=== PATIENT | female | born 1985 | race African-American/Black ===

== ENCOUNTER 2019-09-07 12:40 | Emergency (ER) | payer OTHER ==
[~2019-09-07] VITALS: Ht 167.6 cm; Wt 59.0 kg
[2019-09-07] MEDS ORDERED: Acetaminophen 500mg (ES) tab ORAL ONE (13:00)
[2019-09-07] MEDS ORDERED: PRENA1 PEARL S1 EACH PO (13:10)
--- NOTE | 2019-09-07 13:27 | Emergency Room Report ---
History of Present Illness General Chief Complaint: Complications Source: Patient (Ezio Chow) Present Illness HPI 33-year-old female with no symptom past medical history who is G6, with a last ending to being stillbirth at 8 months occurring 9 years ago here complaining of 1 day of vaginal spotting or proceeded with leaking clear fluid and now blood-tinged fluid. Patient is 19 weeks and has not yet had any OB visits or ultrasound done. Patient reports the last week and he drank alcohol due to the loss of a loved one. Denies smoking and drug use. Complains of minimal abdominal pain however denies feeling any contractions, nausea vomiting. Patient complains of chills, and palpitations however denies chest pain, shortness of breath, headache and dizziness. Upon arrival she has a temperature of 102 F and is tachycardic. Otherwise has stable vital signs. Denies urinary frequency and painful urination. Patient speaks in full sentences and is cooperative. Denies vaginal discharge other than the clear fluid that has been flowing since this morning. Patient reports that she has been taking her vitamins. Denies intake of any other medications. (Ezio Chow) Allergies: Coded Allergies: No Known Allergies (Unverified , 09/07/19) Patient History Past Medical History: see triage record Past Surgical History: none Pertinent Family History: unable to obtain Social History: Reports: alcohol use Now: Yes - 19 weeks Immunizations: UTD Reviewed Nursing Documentation: PMH: Agreed; PSxH: Agreed (Ezio Chow) Nursing Documentation-PMH Past Medical History: No Stated History (Ezio Chow) Review of Systems All Other Systems: negative except mentioned in HPI (Ezio Chow) Physical Exam Vital Signs Date Time Temp Pulse Resp B/P (MAP) Pulse Ox O2 Delivery O2 Flow Rate FiO2 09/07/19 13:01 102.4 121 22 110/68 (82) 96 Room Air Sp02 EP Interpretation: reviewed, abnormal - Temperature of 102 F and heart rate 112 General Appearance: no apparent distress, alert, GCS 15, non-toxic Head: normocephalic, atraumatic Eyes: bilateral eye normal inspection, bilateral eye PERRL ENT: hearing grossly normal, normal pharynx, no angioedema, normal voice Neck: full range of motion, supple/symm/no masses Respiratory: chest non-tender, lungs clear, normal breath sounds, no wheezing, speaking full sentences Cardiovascular #1: regular rate, rhythm, no edema, no murmur, normal capillary refill Gastrointestinal: normal bowel sounds, non tender, soft, no mass, no organomegaly, no peritonitis, no bruit, no guarding, no hernia, no rebound Genitourinary: normal inspection, no CVA tenderness Musculoskeletal: normal inspection, back normal, digits/nails normal, gait/ station normal, no calf tenderness Neurologic: alert, oriented x3, responsive, motor strength/tone normal, sensory intact, speech normal Psychiatric: normal inspection, judgement/insight normal, memory normal Skin: no rash Lymphatic: no adenopathy (Ezio Chow) Medical Decision Making PA Attestation All my diagnosis and treatment plans were reviewed ad discussed with my supervising physician Dr. Jeffrey (Ezio Chow) Diagnostic Impression: Primary Impression: Complication of Additional Impression: Endometritis affecting ER Course 33-year-old female with no symptom past medical history who is G6, with a last ending to being stillbirth at 8 months occurring 9 years ago here complaining of 1 day of vaginal spotting or proceeded with leaking clear fluid and now blood-tinged fluid. Patient is 19 weeks and has not yet had any OB visits or ultrasound done. Patient reports the last week and he drank alcohol due to the loss of a loved one. Denies smoking and drug use. Complains of minimal abdominal pain however denies feeling any contractions, nausea vomiting. Patient complains of chills, and palpitations however denies chest pain, shortness of breath, headache and dizziness. Upon arrival she has a temperature of 102 F and is tachycardic. Otherwise has stable vital signs. Denies urinary frequency and painful urination. Patient speaks in full sentences and is cooperative. Denies vaginal discharge other than the clear fluid that has been flowing since this morning. Patient reports that she has been taking her vitamins. Denies intake of any other medications. Ddx considered but are not limited to: Ectopic , threatened , complete , PID Vital signs: are WNL, pt. is afebrile H&PE are most consistent with: High risk complication of with fever, endometritis affecting ORDERS: OB ultrasound, beta hcg, UA, cbc, cmp, type and screen, sepsis order ED INTERVENTIONS: NS bolus, tylenol, zosyn, clindamycin Patient was Transferred with diagnosis of endometritis affecting to Dr. Barrientos, at [facility], under supervision of : Wojciech pt stable at time of Transfer (Ezio Chow) ER Course Patient is a 33-year-old female who presented after increased leakage of fluid for 1 day as well as increased fever. Patient reports having some suprapubic pain. Patient was primarily seen by physician funeral assistant. She was noted to have symptoms concerning for oligohydramnios as well as possible sepsis from endometrial infection. Patient was started on IV antibiotics as well as IV fluids. Patient will likely be transferred for higher level care due to lack of OB coverage at this facility. Patient was noted to have ultrasound with 19 weeks 3 days fetus. heartbeat was 168. Patient was noted to have some prior history of alcohol abuse. She will be given IV antimicrobial medications as well as IV fluids. (Marvin Jeffrey MD) EKG Diagnostic Results Rate: tachycardiac ST Segments: no acute changes Other Impression no acute ST changes (Ezio Chow) CT/MRI/US Diagnostic Results CT/MRI/US Diagnostic Results : Imaging Test Ordered: OB US Impression no amniotic fluid. . FHR 168 19wks (Ezio Chow) Last Vital Signs Date Time Temp Pulse Resp B/P (MAP) Pulse Ox O2 Delivery O2 Flow Rate FiO2 09/07/19 13:01 102.4 121 22 110/68 (82) 96 Room Air (Ezio Chow) Disposition: XFER SNF Condition: Stable Ezio Chow Sep 07, 2019 13:27 Mavrin Jeffrey MD Sep 07, 2019 14:25
--- NOTE | 2019-09-07 13:30 | NUR ---
ED Nurse Note: PT FROM HOME CAME IN DUE TO VAGINAL SPOTTING OF DARK BROWN BLOOD SINCE THIS MORNING. ALSO STATES SHE HAS BEEN VOMITING. PT IS 19 WEEKS . DENIES CP. AAO X 4 AND AMBULATORY WITH NON LABORED BREATHING. FEVER IN TRIAGE 102.3 F.
[2019-09-07 13:48] LABS: HEMATOCRIT 32.3 % (37.0-47.0); HEMOGLOBIN 10.5 G/DL (12.0-16.0); MEAN CORPUSCULAR VOLUME 86 FL (80-99); PLATELET COUNT 207 K/UL (150-450); RED BLOOD COUNT 3.74 M/UL (4.20-5.40); RED CELL DISTRIBUTION WIDTH 11.8 % (11.6-14.8); WHITE BLOOD COUNT 15.5 K/UL (4.8-10.8)
[2019-09-07 13:53] LABS: APPEARANCE,URINE CLEAR; BILIRUBIN, URINE NEGATIVE (NEGATIVE); GLUCOSE, URINE (UA) NEGATIVE (NEGATIVE); KETONES,URINE 2+ (NEGATIVE); LEUKOCYTE ESTERASE ,URINE 3+ (NEGATIVE); NITRITE,URINE NEGATIVE (NEGATIVE); PH,URINE 5 (4.5-8.0); PROTEIN,URINE 2+ (NEGATIVE); UROBILINOGEN,URINE NORMAL MG/DL (0.0-1.0)
[2019-09-07 13:58] LABS: COLOR,URINE YELLOW
[2019-09-07] MEDS ORDERED: Piperacillin/Tazobactam 4.5 GM in NS 110 ML IVPB ONE (14:00)
[2019-09-07 14:01] LABS: ANION GAP 8 mmol/L (5-15); BLOOD UREA NITROGEN 9 mg/dL (7-18); CARBON DIOXIDE 24 MMOL/L (21-32); CHLORIDE 100 MMOL/L (98-107); CREATININE 0.7 MG/DL (0.55-1.30); POTASSIUM 3.6 MMOL/L (3.5-5.1); SODIUM 132 MMOL/L (136-145)
--- NOTE | 2019-09-07 14:09 | Diagnostic Imaging Report ---
Indication: Pelvic pain, fever, spotting, premature rupture of membranes, maternal tachypnea Technique: Transabdominal images only. Transvaginal imaging are performed, due to history of premature rupture of membranes, impending transfer Comparison: none Findings: There is a single live intrauterine . This demonstrates demonstrates cephalic presentation. Essentially no amniotic fluid is visualized. There is anterior fundal placenta. This clears the internal cervical os. The cervix is closed, endocervical canal measuring 3.5 cm in length. There is positive heart activity, heart rate 168 bpm measurements as follows: Biparietal diameter 4.5 cm, 19 weeks 3 days; head circumference 15.2 cm, 18 weeks 2 days; abdominal circumference 12.4 cm, 18 weeks one day; femur length 2.7 cm, 18 weeks one day. Estimated gestational age by average ultrasound measurements is 18 weeks 3 days. Estimated gestational age by dates is 23 weeks 4 days Only a very limited assessment of anatomy, due to emergent nature of the exam and early stage of . No gross abnormality demonstrated Impression: Essentially absent amniotic fluid, most likely related to clinical history of premature rupture of membranes Single live intrauterine , estimated gestational age 8 weeks 3 days by average of ultrasound measurements Findings were discussed by phone with Dr. Jeffrey in the emergency room
[2019-09-07 14:12] LABS: ALANINE AMINOTRANSFERASE 25 U/L (12-78); ALBUMIN/GLOBULIN RATIO 0.7 (1.0-2.7); ALKALINE PHOSPHATASE 44 U/L (46-116); ASPARTATE AMINO TRANSFERASE 14 U/L (15-37); BILIRUBIN,TOTAL 0.8 MG/DL (0.2-1.0)
[2019-09-07 15:06] VITALS: BP 85/41
[2019-09-07] MEDS ORDERED: Gentamicin 120mg/100ml NS INJ 100 ML IVPB ONE (15:15)
[2019-09-07] MEDS ORDERED: Ampicillin 2 GM in NS 110 ML IVPB ONE (15:15)
--- NOTE | 2019-09-07 15:26 | NUR ---
ED Nurse Note: PT AND FAMILY MEMBER ARE AWARE OF HOSPITAL TRANSFER.
[2019-09-07 16:00] VITALS: BP 87/56
[2019-09-07 16:26] VITALS: BP 91/43
[2019-09-07 16:37] VITALS: BP 91/43
--- NOTE | 2019-09-11 12:12 | Cardiology Report ---
APPROVED REPORT EKG Measurement Heart [id number] Sinus tachycardia Nonspecific T wave abnormality Abnormal ECG
== END 2019-09-07 16:37 | disposition short-term general hospital (02) ==
LOC: EMR 13:43
DX: O23.592 Infection of other part of genital tract in pregnancy, second trimester (principal); Z3A.19 19 weeks gestation of pregnancy; O26.892 Other specified pregnancy related conditions, second trimester; R00.0 Tachycardia, unspecified
CPT/HCPCS: 36415; 76805; 80053; 81001; 83605; 84702; 85007; 85025; 86850; 86900; 86901; 87040; 93005; 96361; 96365; 96367; 96368; J2543; Z7502; 99284; J7030; S0077